=== PATIENT | female | born 1930 | race Caucasian/White ===

== ENCOUNTER 2017-04-06 07:14 | Inpatient (IN) ==
[2017-04-06] MEDS ORDERED: ONDANSETRON 4 MG/2 ML VIAL IV PRN (10:53)
[2017-04-06] MEDS ORDERED: MORPHINE 2 MG/1 ML SYRINGE IV PRN (10:53)
[2017-04-06] MEDS ORDERED: ALBUTEROL 2.5 MG/3 ML NEB RESP TX PRN (10:55)
[2017-04-06] MEDS ORDERED: hydrALAZINE 20 MG/1 ML VIAL IV PRN (11:06)
[2017-04-06 11:08] LABS: Albumin 3.6 G/DL (3.4-5.0); Bilirubin,Direct 0.12 MG/DL (0.0-0.20); Bilirubin,Indirect 0.3 MG/DL (0.0-1.0); Bilirubin,Total 0.4 MG/DL (0.2-1.0); Total Protein 7.1 G/DL (6.4-8.3)
[2017-04-06] MEDS: SODIUM CHLORIDE 0.9% 1,000 ML IV SCH (12:20)
[2017-04-06] MEDS: AZITHROMYCIN INJ 500 MG in SODIUM CHLORIDE 0.9% 250 ML IV SCH (15:18)
[2017-04-06] MEDS: ALBUTEROL/IPRATROPIUM 3 ML NEB RESP TX SCH ×2 (15:37→19:01)
[2017-04-07] MEDS: ACETAMINOPHEN 500 MG TABLET PO PRN ×2 (00:18→06:06)
[2017-04-07] MEDS: ALBUTEROL/IPRATROPIUM 3 ML NEB RESP TX SCH ×4 (00:20→20:20)
[2017-04-07 06:03] LABS: Basophils # 0.1 10*3/uL (0.0-0.2); Basophils % 0.8 % (0.0-0.8); Eosinophils # 0.6 10*3/uL (0.0-0.87); Eosinophils % 6.1 % (0.00-10.9); Hematocrit 36.4 VOL% (35.7-47.0); Hemoglobin 11.5 GM/DL (12.0-16.0); Immature Granulocytes % 0.4 %; Immature Granulocytes Absolute 0.04 #; Lymphocytes # 1.9 10*3/uL (1.4-4.0); Mean Corpuscular HGB Conc 31.6 GM/DL (32-36); Mean Corpuscular Hemoglobin 28 PG (27-34); Mean Corpuscular Volume 88.1 FL (87-102); Mean Platelet Volume 11.4 FL (9.6-12.0); Monocytes # 0.8 10*3/uL (0.11-0.8); Monocytes % 9.3 % (1.7-12.7); Neutrophils # 5.6 10*3/uL (1.4-7.4); Neutrophils % 62.4 % (38.7-73.9); Platelet Count 200 T/CUMM (130-400); Red Blood Count 4.13 MC/CUMM (3.8-5.5); Red Cell Distribution Width 13.2 % (9.3-17.3)
[2017-04-07 06:19] LABS: Albumin 3.1 G/DL (3.4-5.0); Bilirubin,Total 0.6 MG/DL (0.2-1.0); Calcium 8.4 MG/DL (8.5-10.1); Osmolality,Calculated 282.3 MOS/KG (273-304); Total Protein 5.6 G/DL (6.4-8.3)
[2017-04-07] MEDS ORDERED: MEPERIDINE 50 MG/1 ML VIAL IM ONE (07:30)
[2017-04-07] MEDS ORDERED: PROMETHAZINE 25 MG/1 ML VIAL IM ONE (07:30)
[2017-04-07] MEDS ORDERED: GLYCOPYRROLATE 0.4 MG/2 ML VIAL IM ONE (07:30)
[2017-04-07] MEDS ORDERED: MIDAZOLAM 2 MG/2 ML VIAL ONE (07:58)
[2017-04-07] MEDS ORDERED: LIDOCAINE 2% 20 ML VIAL RESP TX ONE (08:00)
[2017-04-07] MEDS ORDERED: LIDOCAINE 2% VISCOUS 100 ML BOTTLE SWISH/SPIT ONE (08:00)
[2017-04-07] MEDS ORDERED: LIDOCAINE 1% 20 ML VIAL MISC INJ ONE (08:00)
[2017-04-07] MEDS ORDERED: MIDAZOLAM 10 MG/2 ML VIAL IV ONE (08:00)
[2017-04-07] MEDS: AZITHROMYCIN INJ 500 MG in SODIUM CHLORIDE 0.9% 250 ML IV SCH (14:54)
[2017-04-07] MEDS: SODIUM CHLORIDE 0.9% 1,000 ML IV SCH (18:36)
[2017-04-08] MEDS: ALBUTEROL/IPRATROPIUM 3 ML NEB RESP TX SCH ×4 (00:34→20:39)
[2017-04-08 05:51] LABS: Basophils # 0.1 10*3/uL (0.0-0.2); Basophils % 0.6 % (0.0-0.8); Eosinophils # 0.4 10*3/uL (0.0-0.87); Eosinophils % 3.1 % (0.00-10.9); Hematocrit 36.1 VOL% (35.7-47.0); Hemoglobin 11.2 GM/DL (12.0-16.0); Immature Granulocytes % 0.5 %; Immature Granulocytes Absolute 0.06 #; Lymphocytes # 1.9 10*3/uL (1.4-4.0); Lymphocytes % 16.9 % (21.3-54.2); Mean Corpuscular Hemoglobin 28 PG (27-34); Mean Corpuscular Volume 88.9 FL (87-102); Mean Platelet Volume 11.2 FL (9.6-12.0); Monocytes # 0.8 10*3/uL (0.11-0.8); Neutrophils % 71.9 % (38.7-73.9); Platelet Count 190 T/CUMM (130-400); Red Blood Count 4.06 MC/CUMM (3.8-5.5); Red Cell Distribution Width 13.2 % (9.3-17.3); White Blood Count 11.2 T/CUMM (4-12)
[2017-04-08 06:25] LABS: Albumin 2.9 G/DL (3.4-5.0); Bilirubin,Total 0.6 MG/DL (0.2-1.0); Calcium 8.5 MG/DL (8.5-10.1); Osmolality,Calculated 283.1 MOS/KG (273-304); Potassium 4.1 MMOL/L (3.5-5.1); Total Protein 5.4 G/DL (6.4-8.3)
[2017-04-08] MEDS ORDERED: FUROSEMIDE 40 MG/4 ML VIAL IV ONE (07:44)
[2017-04-08] MEDS: methylPREDNISolone SOD SUC 40 MG/1 ML VIAL IV SCH ×2 (09:53→18:19)
[2017-04-09] MEDS: methylPREDNISolone SOD SUC 40 MG/1 ML VIAL IV SCH ×4 (01:06→17:12)
[2017-04-09] MEDS: ALBUTEROL/IPRATROPIUM 3 ML NEB RESP TX SCH ×4 (02:23→19:15)
[2017-04-09 05:41] LABS: Bilirubin,Total 0.5 MG/DL (0.2-1.0); Calcium 9.2 MG/DL (8.5-10.1); Osmolality,Calculated 288.3 MOS/KG (273-304); Potassium 3.7 MMOL/L (3.5-5.1); Total Protein 6.5 G/DL (6.4-8.3)
[2017-04-09 06:34] LABS: Basophils % 0.1 % (0.0-0.8); Hematocrit 38.3 VOL% (35.7-47.0); Hemoglobin 12.7 GM/DL (12.0-16.0); Immature Granulocytes % 2.1 %; Immature Granulocytes Absolute 0.21 #; Lymphocytes # 0.6 10*3/uL (1.4-4.0); Lymphocytes % 6.2 % (21.3-54.2); Mean Corpuscular HGB Conc 33.2 GM/DL (32-36); Mean Corpuscular Hemoglobin 28 PG (27-34); Mean Corpuscular Volume 85.5 FL (87-102); Mean Platelet Volume 11.6 FL (9.6-12.0); Monocytes # 0.3 10*3/uL (0.11-0.8); Monocytes % 2.8 % (1.7-12.7); Neutrophils % 88.8 % (38.7-73.9); Platelet Count 205 T/CUMM (130-400); Red Blood Count 4.48 MC/CUMM (3.8-5.5); Red Cell Distribution Width 13.2 % (9.3-17.3); White Blood Count 10.2 T/CUMM (4-12)
[2017-04-09] MEDS ORDERED: ALBUTEROL 2.5 MG/3 ML NEB RESP TX PRN (08:49)
[2017-04-09] MEDS: METOPROLOL TARTRATE 50 MG TABLET PO SCH ×2 (09:18→21:08)
[2017-04-09] MEDS: FUROSEMIDE 20 MG TABLET PO SCH (09:18)
[2017-04-09] MEDS: MONTELUKAST 10 MG TABLET PO SCH (16:20)
[2017-04-10] MEDS: ALBUTEROL/IPRATROPIUM 3 ML NEB RESP TX SCH ×4 (00:10→19:56)
[2017-04-10] MEDS: methylPREDNISolone SOD SUC 40 MG/1 ML VIAL IV SCH ×3 (02:10→16:37)
[2017-04-10 07:02] LABS: Basophils % 0.1 % (0.0-0.8); Hematocrit 37.3 VOL% (35.7-47.0); Hemoglobin 12.2 GM/DL (12.0-16.0); Immature Granulocytes % 0.6 %; Immature Granulocytes Absolute 0.12 #; Lymphocytes # 0.9 10*3/uL (1.4-4.0); Lymphocytes % 4.5 % (21.3-54.2); Mean Corpuscular HGB Conc 32.7 GM/DL (32-36); Mean Corpuscular Hemoglobin 28 PG (27-34); Mean Corpuscular Volume 86.7 FL (87-102); Mean Platelet Volume 11.4 FL (9.6-12.0); Monocytes # 0.6 10*3/uL (0.11-0.8); Monocytes % 2.8 % (1.7-12.7); Neutrophils # 17.8 10*3/uL (1.4-7.4); Platelet Count 253 T/CUMM (130-400); Red Cell Distribution Width 13.4 % (9.3-17.3); White Blood Count 19.4 T/CUMM (4-12)
[2017-04-10] MEDS: LEVOTHYROXINE 88 MCG TABLET PO SCH (07:04)
[2017-04-10 07:40] LABS: Alanine Aminotransferase 40 U/L (13-56); Albumin 3.1 G/DL (3.4-5.0); Alkaline Phosphatase 82 U/L (45-117); Aspartate Amino Transferase 78 U/L (0-37); Bilirubin,Total < 0.39 MG/DL (0.2-1.0); Blood Urea Nitrogen 35 MG/DL (7-18); Calcium 9.1 MG/DL (8.5-10.1); Glucose 124 MG/DL (74-106); Osmolality,Calculated 289.3 MOS/KG (273-304); Potassium 4.4 MMOL/L (3.5-5.1); Sodium 141 MMOL/L (136-145); Total Protein 6.5 G/DL (6.4-8.3)
[2017-04-10 07:55] LABS: Elliptocytes Few; Giant Platelets Few; Hypochromasia 1+; Lymphocytes 4 % (20-55); Platelet Estimate Adequate; Segmented Neutrophils 92 % (50-85); Total Cells Counted 100
[2017-04-10] MEDS: METOPROLOL TARTRATE 50 MG TABLET PO SCH ×2 (08:44→21:09)
[2017-04-10] MEDS: MONTELUKAST 10 MG TABLET PO SCH ×2 (08:44→21:09)
[2017-04-10] MEDS: FUROSEMIDE 20 MG TABLET PO SCH (08:44)
[2017-04-10] MEDS ORDERED: AMINOPHYLLINE 250 MG in SODIUM CHLORIDE 0.9% 100 ML IV ONE (12:00)
[2017-04-10] MEDS: ALBUTEROL 2 MG TABLET PO SCH (13:40)
[2017-04-10] MEDS: DICLOFENAC 1% GEL 100 GM TUBE TOP SCH ×2 (14:05→21:09)
[2017-04-10] MEDS: AMINOPHYLLINE 500 MG in SODIUM CHLORIDE 0.9% 480 ML IV SCH (17:00)
[2017-04-11] MEDS: ALBUTEROL 2 MG TABLET PO SCH ×4 (00:17→21:01)
[2017-04-11] MEDS: ALBUTEROL/IPRATROPIUM 3 ML NEB RESP TX SCH ×4 (00:36→19:09)
[2017-04-11] MEDS: methylPREDNISolone SOD SUC 40 MG/1 ML VIAL IV SCH ×3 (02:10→16:44)
[2017-04-11] MEDS: MONTELUKAST 10 MG TABLET PO SCH ×2 (08:09→20:58)
[2017-04-11] MEDS: METOPROLOL TARTRATE 50 MG TABLET PO SCH (08:09)
[2017-04-11] MEDS: LEVOTHYROXINE 88 MCG TABLET PO SCH (08:09)
[2017-04-11] MEDS: FUROSEMIDE 20 MG TABLET PO SCH (08:09)
[2017-04-11] MEDS: DICLOFENAC 1% GEL 100 GM TUBE TOP SCH ×3 (08:11→20:58)
[2017-04-11] MEDS: AMINOPHYLLINE 500 MG in SODIUM CHLORIDE 0.9% 480 ML IV SCH (17:08)
[2017-04-11] MEDS: METOPROLOL SUCCINATE XL 50 MG TABLET PO SCH (20:58)
[2017-04-12] MEDS: ALBUTEROL/IPRATROPIUM 3 ML NEB RESP TX SCH ×4 (00:10→19:14)
[2017-04-12] MEDS: methylPREDNISolone SOD SUC 40 MG/1 ML VIAL IV SCH ×4 (01:17→16:50)
[2017-04-12] MEDS ORDERED: METOPROLOL TARTRATE 5 MG/5 ML VIAL IV ONE (02:00)
[2017-04-12 05:46] LABS: Basophils % 0.1 % (0.0-0.8); Hematocrit 35.6 VOL% (35.7-47.0); Hemoglobin 11.8 GM/DL (12.0-16.0); Immature Granulocytes Absolute 0.29 #; Lymphocytes # 0.5 10*3/uL (1.4-4.0); Lymphocytes % 3.2 % (21.3-54.2); Mean Corpuscular HGB Conc 33.1 GM/DL (32-36); Mean Corpuscular Hemoglobin 29 PG (27-34); Mean Corpuscular Volume 86.2 FL (87-102); Mean Platelet Volume 10.8 FL (9.6-12.0); Monocytes # 0.6 10*3/uL (0.11-0.8); Monocytes % 3.9 % (1.7-12.7); Neutrophils # 13.5 10*3/uL (1.4-7.4); Neutrophils % 90.8 % (38.7-73.9); Platelet Count 252 T/CUMM (130-400); Red Blood Count 4.13 MC/CUMM (3.8-5.5); Red Cell Distribution Width 13.4 % (9.3-17.3); White Blood Count 14.8 T/CUMM (4-12)
[2017-04-12] MEDS: LEVOTHYROXINE 88 MCG TABLET PO SCH (06:02)
[2017-04-12 06:09] LABS: Giant Platelets Few; Hypochromasia 1+; Lymphocytes 4 % (20-55); Ovalocytes Slight; Platelet Estimate Adequate; Segmented Neutrophils 95 % (50-85); Total Cells Counted 100
[2017-04-12] MEDS: ALBUTEROL 2 MG TABLET PO SCH ×3 (07:33→21:00)
[2017-04-12] MEDS: MONTELUKAST 10 MG TABLET PO SCH ×2 (09:04→20:56)
[2017-04-12] MEDS: METOPROLOL SUCCINATE XL 50 MG TABLET PO SCH ×2 (09:04→20:56)
[2017-04-12] MEDS: FUROSEMIDE 20 MG TABLET PO SCH (09:04)
[2017-04-12] MEDS: DICLOFENAC 1% GEL 100 GM TUBE TOP SCH ×3 (09:06→20:57)
[2017-04-12] MEDS: THEOPHYLLINE ER (24 HR) 400 MG CAPSULE PO SCH (11:38)
[2017-04-13] MEDS: methylPREDNISolone SOD SUC 40 MG/1 ML VIAL IV SCH ×2 (00:53→09:04)
[2017-04-13] MEDS: ALBUTEROL 2 MG TABLET PO SCH (06:06)
[2017-04-13] MEDS: LEVOTHYROXINE 88 MCG TABLET PO SCH (06:06)
[2017-04-13] MEDS: ALBUTEROL/IPRATROPIUM 3 ML NEB RESP TX SCH ×2 (06:58)
[2017-04-13] MEDS: MONTELUKAST 10 MG TABLET PO SCH (09:07)
[2017-04-13] MEDS: METOPROLOL SUCCINATE XL 50 MG TABLET PO SCH (09:07)
[2017-04-13] MEDS: FUROSEMIDE 20 MG TABLET PO SCH (09:07)
[2017-04-13] MEDS: THEOPHYLLINE ER (24 HR) 400 MG CAPSULE PO SCH (09:07)
[2017-04-13] MEDS: DICLOFENAC 1% GEL 100 GM TUBE TOP SCH (09:08)
[2017-04-13 12:13] VITALS: BP 107/76
== END 2017-04-13 12:49 | disposition hospice, home (50) | DRG 182 ==
LOC: N.ED 07:14 → N.EDINP 07:56 → SUATTDRO 07:56 → N.EDINP 11:45 → N.5E 12:14
PROVIDERS: ADMIT Internal Medicine; ATTEND Internal Medicine
PROC: BRONCHB (2017-04-07 08:05)